=== PATIENT | male | born 1945 | race Caucasian/White ===

== ENCOUNTER → 2017-11-22 | Outpatient (CLI) | payer MEDICARE ==
[~2017-11-22] MED LIST: HYDROCODONE BIT1 T11 PO; Motrin,Rufen800 MG PO; PENICILLIN-VK500 MG PO
== END | disposition home or self-care (01) ==
LOC: RAD 14:27
DX: M47.897 Other spondylosis, lumbosacral region (principal); M51.37 Other intervertebral disc degeneration, lumbosacral region; M19.032 Primary osteoarthritis, left wrist; M19.031 Primary osteoarthritis, right wrist; J44.9 Chronic obstructive pulmonary disease, unspecified; R06.00 Dyspnea, unspecified; R10.9 Unspecified abdominal pain; R05 Cough; Z87.891 Personal history of nicotine dependence

== ENCOUNTER → 2017-12-13 | Outpatient (CLI) | payer MEDICARE | END | disposition home or self-care (01) | LOC: CT 12-06 09:00 → US 12-06 09:00 | DX: R10.84 Generalized abdominal pain (principal) ==

== ENCOUNTER → 2019-04-14 | Outpatient (CLI) | payer MEDICARE | END | disposition home or self-care (01) | LOC: US 09:49 | DX: K40.90 Unilateral inguinal hernia, without obstruction or gangrene, not specified as recurrent (principal) ==

== ENCOUNTER 2023-08-10 19:44 | Emergency (ER) | payer MEDICARE, BC ==
[~2023-08-10] VITALS: Ht 162.5 cm
[~2023-08-10 19:44] MED LIST changes: +CETIRIZINE HYDR10 MG PO; +ONDANSETRON HYDR4 M1 PO; +PREDNISONE10 MG PO
[2023-08-10] MEDS ORDERED: DIATRIZOATE MEG/DIATRIZO. SOD 120 ML BOT PO ONE (20:25)
[2023-08-10] MEDS ORDERED: DIATRIZOATE MEG/DIATRIZO. SOD 120 ML BOT ONE (20:50)
== END 2023-08-10 21:45 | disposition home or self-care (01) ==
LOC: ED 19:44
DX: K94.23 Gastrostomy malfunction (principal); F17.200 Nicotine dependence, unspecified, uncomplicated; Z79.899 Other long term (current) drug therapy; Z98.890 Other specified postprocedural states